=== PATIENT | male | born 1990 | race American Indian/Alaskan Native ===

== ENCOUNTER 2017-05-03 15:15 | Emergency (ER) | payer OTHER ==
[2017-05-03 15:20] VITALS: BP 126/90
[2017-05-03] MEDS ORDERED: MOTRIN PO ONE (16:51)
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
== END 2017-05-03 18:07 | disposition home or self-care (01) ==
LOC: EDSEX → ED 15:15
DX: S76.911A Strain of unspecified muscles, fascia and tendons at thigh level, right thigh, initial encounter (principal); S39.012A Strain of muscle, fascia and tendon of lower back, initial encounter; F17.210 Nicotine dependence, cigarettes, uncomplicated; V49.49XA Driver injured in collision with other motor vehicles in traffic accident, initial encounter; Y93.89 Activity, other specified; Y92.89 Other specified places as the place of occurrence of the external cause; Y99.8 Other external cause status
CPT/HCPCS: 99283